=== PATIENT | male | born 1960 | race Caucasian/White ===

== ENCOUNTER → 2016-08-20 | Day surgery (SDC) | payer BC, OTHER ==
[~2016-08-20] MED LIST: Lactated Ringers 1,000 ML IV SCH; Meperidine PF 50 MG/ML Syringe IV ONE; Meperidine PF 50 MG/ML Syringe ONE; Midazolam 1 MG/ML 2 ML SDV IV ONE; Midazolam 1 MG/ML 2 ML SDV ONE
[2016-08-20 09:42] VITALS: BP 122/65
--- NOTE | 2016-08-20 13:13 | OR ---
DATE OF OPERATION: 08/20/2016 PREOPERATIVE DIAGNOSIS: HEMATOCHEZIA. POSTOPERATIVE DIAGNOSIS: HEMATOCHEZIA. SURGEON: Дмитрий Vanessa MD PROCEDURE: FULL-LENGTH COLONOSCOPY. ANESTHESIA: Conscious sedation. COMPLICATIONS: None. SPECIMEN: None. FINDINGS: 1. Normal full-length colonoscopy. 2. Inflamed internal hemorrhoids. RECOMMENDATIONS: Followup colonoscopy routinely. INDICATIONS: Mr. Worthington has had a colonoscopy about 4 years ago. He presented for a complaint of 3 days of hematochezia, now resolve. We elected to proceed with repeat colonoscopy. DESCRIPTION OF PROCEDURE: The patient was prepped and draped, placed in the left lateral decubitus position. A lubricated Olympus colonoscope was inserted and easily advanced to the cecum. Direct visualization of the ileocecal valve and appendiceal orifice was accomplished. The bowel prep was adequate. Upon withdrawal of the scope, throughout the entire colon, I found no signs of any polyps, masses, ulcerations, or bleeding sites. No vascular abnormalities or signs of colitis. There were no diverticula. He had a good prep, and I saw everything very clearly. Specifically in the left colon and rectosigmoid area, I found no obvious sources of bleeding. In the rectal vault, the patient does have prominent vascularity, and in perianal area. Upon retroflexion, the patient does have 3 to 4 inflamed internal hemorrhoids, not actively bleeding, but certainly friable. Air was then suctioned from the colon, and the scope was removed without complications. JUSTIN/SHIRA /[id number]
== END ==
LOC: CC.SDS 07:59
PROVIDERS: ATTEND Family Medicine
DX: K64.8 Other hemorrhoids (principal); N40.0 Benign prostatic hyperplasia without lower urinary tract symptoms; E78.00 Pure hypercholesterolemia, unspecified; Z79.899 Other long term (current) drug therapy
CPT/HCPCS: 45378; J2175; J2250; J7120